=== PATIENT | male | born 1980 | race Hispanic/Latino ===

== ENCOUNTER 2018-03-22 17:42 | Emergency (ER) | payer BC, OTHER ==
[~2018-03-22] VITALS: Ht 180.3 cm; Wt 105.7 kg
[~2018-03-22 17:42] MED LIST: AUGMENTIN 500-1 EACH PO; CIPRO500 MG PO; CLINDAMYCIN HC300 MG PO; LEVAQUIN500 MG PO; NORCO 10MG-325MG1 EA PO; TYLENOL PO; TYLENOL WITH C1 EACH PO
[2018-03-22 18:09] LABS: BASOPHILS % 0.6 % (0.0-1.0); EOSINOPHILS # (AUTO) 0.3 (0.0-0.4); EOSINOPHILS % 3.7 % (0.0-6.0); HEMATOCRIT 43.5 % (38.2-49.6); HEMOGLOBIN 15.6 g/dL (14.0-18.0); LYMPHOCYTES # (AUTO) 1.6 (1.0-3.2); LYMPHOCYTES % 22.4 % (18.0-39.1); MEAN CORPUSCULAR HEMOGLOBIN 30.8 pg (28-32); MEAN CORPUSCULAR HGB CONC 35.9 g/dL (31-35); MEAN CORPUSCULAR VOLUME 85.8 fL (81-99); MONOCYTES # (AUTO) 0.5 (0.2-0.8); MONOCYTES % 6.5 % (4.4-11.3); NEUTROPHILS # (AUTO) 4.7 (2.1-6.9); NEUTROPHILS % 66.5 % (38.7-80.0); PLATELET COUNT 324 x10e3/uL (140-360); RED BLOOD COUNT 5.07 x10e6/uL (4.3-5.7); RED CELL DISTRIBUTION WIDTH 12.3 % (11.7-14.4)
[2018-03-22 18:32] LABS: ALANINE AMINOTRANSFERASE 31 IU/L (0-55); ALBUMIN/GLOBULIN RATIO 1.1 (0.8-2.0); ALKALINE PHOSPHATASE 82 IU/L (40-150); ANION GAP 14.9 mmol/L (8-16); BLOOD UREA NITROGEN 13 mg/dL (7-26); BUN/CREATININE RATIO 16 (6-25); CALCIUM 9.1 mg/dL (8.4-10.2); CARBON DIOXIDE 22 mmol/L (22-29); CHLORIDE 104 mmol/L (98-107); CREATININE, SERUM 0.83 mg/dL (0.72-1.25); EST GLOMERULAR FILTRATION RATE > 60 ML/MIN (60-); GLUCOSE 119 mg/dL (74-118); POTASSIUM 3.9 mmol/L (3.5-5.1); SODIUM 137 mmol/L (136-145)
[2018-03-22 19:08] LABS: BILIRUBIN,URINE NEGATIVE (NEGATIVE); CLARITY,URINE SL CLOUDY (CLEAR); COLOR,URINE YELLOW (YELLOW); KETONES,URINE NEGATIVE (NEGATIVE); LEUKOCYTE ESTERASE ,URINE 2+ (NEGATIVE); NITRITE,URINE NEGATIVE (NEGATIVE); PROTEIN,URINE DIPSTICK NEGATIVE (NEGATIVE); URINE UROBILINOGEN 0.2 mg/dL (0.2 - 1)
[2018-03-22 19:20] LABS: AMORPHOUS SEDIMENT,URINE MODERATE (FEW); BACTERIA,URINE MODERATE /HPF; EPITHELIAL CELLS,URINE FEW /LPF; RBC,URINE 0-5 /HPF (0-5)
[2018-03-22] MEDS ORDERED: AZITHROMYCIN 250 MG TAB PO ONE (19:45)
[2018-03-22] MEDS ORDERED: CEFTRIAXONE SOD 250 MG VIAL IM ONE (19:45)
[2018-03-22] MEDS ORDERED: IOPAMIDOL 370 MG/ML 200 ML INFUS..BTL INJ ONE (19:54)
[2018-03-22] MEDS ORDERED: SODIUM CHLORIDE 0.9% 50ML 50 ML ONE (19:54)
[2018-03-22] MEDS ORDERED: LIDOCAINE HCL 1% 2 ML AMP ONE (20:03)
--- NOTE | 2018-03-22 21:02 | Diagnostic Imaging Report ---
EXAM: CT Abdomen and Pelvis WITH contrast INDICATION: Pain, hematuria COMPARISON: None. TECHNIQUE: Abdomen and Pelvis was scanned utilizing a multidetector helical scanner after administration of IV contrast. Coronal and sagittal reformations were obtained. IV CONTRAST: 100 mL Isovue-370 COMPLICATIONS: None RADIATION DOSE: Total DLP:693 mGy*cm Estimated effective dose: (DLP x 0.015 x size factor) mSv CTDIvol has been reviewed. It is below the limits set by the Radiation Protocol Committee (RPC). Appropriate CT dose reduction techniques were utilized. FINDINGS: Abdomen: Lung Bases: No acute findings. Solid Organs: Gallbladder is contracted limiting evaluation. Liver, adrenals, kidneys, spleen, and pancreas are unremarkable. Upper GI Tract: No small bowel obstructive changes. Vascularity: No aortic aneurysm. Lymph Nodes: No suspicious adenopathy. Other: No free fluid or free air. Pelvis: Bladder: Unremarkable. Other: None. Colon: Appendix not inflamed. Minimal wall thickening and faint pericolonic stranding descending colon. Bones: No acute finding. IMPRESSION: 1. Mild wall thickening and faint pericolonic stranding descending/sigmoid colon suggest infectious or inflammatory colitis, with diverticulitis possible given a few scattered diverticula. Signed by: Dr. Roberto Almanzar MD on 03/22/2018 8:58 PM
[2018-03-22 21:40] VITALS: BP 118/72
== END 2018-03-22 21:40 | disposition home or self-care (01) ==
LOC: ER 17:42
DX: R10.30 Lower abdominal pain, unspecified (principal); N30.90 Cystitis, unspecified without hematuria; K57.32 Diverticulitis of large intestine without perforation or abscess without bleeding
CPT/HCPCS: 36415; 74177; 80053; 81001; 85025; 99284; J0696; J2001; Q9967

== ENCOUNTER 2018-05-27 10:41 | Emergency (ER) | payer OTHER ==
[~2018-05-27] VITALS: Ht 180.3 cm; Wt 105.7 kg
--- OUTSIDE RECORDS SUMMARY | 2018-05-27 10:46 | XMS REPORT ---
Author [facility] Address Unknown Phone Unavailable Care Team Providers Care Frame Stripper And Crusher Name Role Phone Blake SANDERS Unavailable Unavailable Problems This patient has no known problems. Allergies, Adverse Reactions, Alerts This patient has no known allergies or adverse reactions. Medications This patient has no known medications. Results Test Description Test Time Test Comments Text Results Atomic Results Result Comments CT ABDOMEN/PELVIS W 2018-03-22 20:54:00 [facility] [address] [place] [address] Patient Name: CASSY MCCORMICK MR #: [id number] : 1980 Age/Sex: 37/M Req #: [id number] Adm Physician: Ordered by: LUCY TAYLOR ACADEMIC DEAN Report #: [id number] Location: ER Room/Bed: Procedure: [id number] CT/CT ABDOMEN/PELVIS W Exam Date: 03/22/18 Exam Time: 2024 REPORT STATUS: Signed EXAM: CT Abdomen and Pelvis WITH contrast INDICA TION: Pain, hematuria COMPARISON: None. TECHNIQUE: Abdomen and Pelvis was scanned utilizing a multidetector helical scanner after administration of IV contrast. Coronal and sagittal reformations were obtained. IV CONTRAST: 100 mL Isovue-370 COMPLICATIONS: None RADIATION DOSE: Total DLP:693 mGy*cm Estimated effective dose: (DLP x 0.015 x size factor) mSv CTDIvol has been reviewed. It is below the limits set by the Radiation Protocol Committee (RPC). Appropriate CT dose reduction techniques were utilized. FINDINGS: Abdomen: Lung Bases: No acute findings. Solid Organs: Gallbladder is contracted limiting evaluation. Liver, adrenals, kidneys, spleen, and pancreas are unremarkable. Upper GI Tract: No small bowel obstructive changes. Vascularity: No aortic aneurysm. Lymph Nodes: No suspicious adenopathy. Other: No free fluid or free air. Pelvis: Bladder: Unremarkable. Other: None. Colon: Appendix not inflamed. Minimal wall thickening and faint pericolonic stranding descending colon. Bones: No acute finding. IMPRESSION: 1. Mild wall thickening and faint pericolonic stranding descending/sigmoid colon suggest infectious or inflammatory colitis, with diverticulitis possible given a few scattered diverticula. Signed by: Dr. Roberto Almanzar MD on 03/22/2018 8:58 PM Dictated By: ROBERTO ALMANZAR MD 57 Transcribed By: RONNY on 03/22/182057 COPY TO: LUCY TAYLOR NP
[2018-05-27] MEDS ORDERED: TYLENOL WITH C1 EACH PO (11:18)
== END 2018-05-27 11:36 | disposition home or self-care (01) ==
LOC: ER 10:41
DX: Z48.01 Encounter for change or removal of surgical wound dressing (principal)
CPT/HCPCS: 99282

== ENCOUNTER 2018-06-01 12:25 | Inpatient (IN) | payer OTHER ==
[2018-05-31 16:10] LABS: BASOPHILS % 0.3 % (0.0-1.0); EOSINOPHILS # (AUTO) 0.5 (0.0-0.4); EOSINOPHILS % 4.1 % (0.0-6.0); HEMATOCRIT 46.2 % (38.2-49.6); HEMOGLOBIN 15.2 g/dL (14.0-18.0); LYMPHOCYTES # (AUTO) 1.9 (1.0-3.2); LYMPHOCYTES % 14.8 % (18.0-39.1); MEAN CORPUSCULAR HEMOGLOBIN 29.8 pg (28-32); MEAN CORPUSCULAR HGB CONC 32.9 g/dL (31-35); MEAN CORPUSCULAR VOLUME 90.6 fL (81-99); MONOCYTES % 7.7 % (4.4-11.3); NEUTROPHILS # (AUTO) 9.1 (2.1-6.9); NEUTROPHILS % 72.6 % (38.7-80.0); PLATELET COUNT 400 x10e3/uL (140-360); RED CELL DISTRIBUTION WIDTH 12.2 % (11.7-14.4)
[2018-05-31 16:28] LABS: ALANINE AMINOTRANSFERASE 42 IU/L (0-55); ALBUMIN/GLOBULIN RATIO 0.8 (0.8-2.0); ALKALINE PHOSPHATASE 87 IU/L (40-150); ANION GAP 15.9 mmol/L (8-16); BLOOD UREA NITROGEN 11 mg/dL (7-26); BUN/CREATININE RATIO 14 (6-25); CALCIUM 10.2 mg/dL (8.4-10.2); CARBON DIOXIDE 29 mmol/L (22-29); CHLORIDE 100 mmol/L (98-107); CREATININE, SERUM 0.81 mg/dL (0.72-1.25); EST GLOMERULAR FILTRATION RATE > 60 ML/MIN (60-); GLUCOSE 107 mg/dL (74-118); POTASSIUM 3.9 mmol/L (3.5-5.1); SODIUM 141 mmol/L (136-145)
[2018-06-01] VITALS (12 sets, daily range): BP systolic 109–143; BP diastolic 56–84
[~2018-06-01] VITALS: Ht 180.3 cm; Wt 103.4 kg
[2018-06-01] MEDS ORDERED: LEVOFLOXACIN 500MG/D5W 100ML 100 ML IV ONE (13:04)
[2018-06-01] MEDS ORDERED: LEVOFLOXACIN 250MG/D5W 50ML 50 ML ONE (13:04)
[2018-06-01] MEDS ORDERED: CLINDAMYCIN PHOS 900MG/ 50ML 50 ML IV ONE (13:04)
[2018-06-01] MEDS ORDERED: LIDOCAINE HCL 2% LOCAL INJ 5 ML SDV VIAL INJ ONE (16:56)
[2018-06-01] MEDS ORDERED: DEXAMETHASONE SOD PHOS INJ 4 MG/ML VIAL ONE (16:56)
[2018-06-01] MEDS ORDERED: PROPOFOL IV EMULSION 10 MG/ML 20 ML VIAL ONE (16:56)
[2018-06-01] MEDS ORDERED: SEVOFLURANE INHAL SOLN 250 ML PEN BTL ONE (16:56)
[2018-06-01] MEDS ORDERED: ONDANSETRON HCL INJ 2MG/ML 2ML 2 MG/ML VIAL ONE (16:56)
[2018-06-01] MEDS ORDERED: BUPIVACAINE HCL 0.5% 10ML MPF VIAL INJ ONE (17:09)
[2018-06-01] MEDS ORDERED: BUPIVACAINE HCL 0.5% INJ 30 ML VIAL INJ ONE (17:09)
[2018-06-01] MEDS ORDERED: BACITRACIN ZINC 15 GM OINT ONE (17:51)
[2018-06-01] MEDS: D5.45%NS/KCL 20MEQ 1,000 ML IV SCH (18:07)
[2018-06-01] MEDS ORDERED: DIPHENHYDRAMINE HCL INJ 50 MG/ML VIAL IM PRN (18:15)
[2018-06-01] MEDS ORDERED: NALOXONE HCL INJ 0.4 MG/ML AMP IV PRN (18:15)
[2018-06-01] MEDS ORDERED: MORPHINE SULFATE 1 MG/ML 30ML PCA IV PRN (18:15)
[2018-06-01] MEDS ORDERED: DIPHENHYDRAMINE HCL 25 MG CAP PO PRN (18:15)
[2018-06-01] MEDS ORDERED: ONDANSETRON HCL INJ 2MG/ML 2ML 2 MG/ML VIAL IV PRN (18:15)
[2018-06-01] MEDS ORDERED: HYDROMORPHONE 2MG/ML 2 MG/ML ML ONE (18:39)
--- NOTE | 2018-06-01 19:45 | NUR ---
RECEIVED FROM PACU VIA STRETCHER. PATIENT IS DROWSY BUT AROUSABLE. ABLE TO FOLLOW COMMAND. WITH ON GOING STONE DRILLER HELPER OF MORPHINE AND OXYGEN AT 3L/MIN. NO DIFFICULTY OF BREATHING NOTED.
[2018-06-01] MEDS ORDERED: MIDAZOLAM HCL 2 MG/2 ML VIAL ONE (20:12)
[2018-06-01] MEDS ORDERED: MORPHINE SULFATE INJ 10 MG/ML ONE (20:12)
[2018-06-01] MEDS ORDERED: KETAMINE HCL INJ 50 MG/ML 10 ML VIAL ONE (20:12)
[2018-06-01] MEDS ORDERED: FENTANYL CITRATE/PF 100MCG/2 ML INJ ONE (20:12)
[2018-06-01] MEDS: CLINDAMYCIN 300MG 50 ML IV SCH (21:35)
[2018-06-01] MEDS: LEVOFLOXACIN 500MG/D5W 100ML 100 ML IV SCH (21:47)
[2018-06-02] VITALS (8 sets, daily range): BP systolic 108–144; BP diastolic 56–80
[2018-06-02] MEDS: D5.45%NS/KCL 20MEQ 1,000 ML IV SCH (02:07)
[2018-06-02] MEDS: CLINDAMYCIN 300MG 50 ML IV SCH ×3 (05:12→21:40)
[2018-06-02] MEDS: DOCUSATE SODIUM 100 MG CAP PO SCH ×2 (09:12→17:51)
[2018-06-02 09:17] LABS: BASOPHILS % 0.1 % (0.0-1.0); EOSINOPHILS % 0.2 % (0.0-6.0); HEMATOCRIT 42.1 % (38.2-49.6); HEMOGLOBIN 14.2 g/dL (14.0-18.0); LYMPHOCYTES # (AUTO) 1.5 (1.0-3.2); LYMPHOCYTES % 9.8 % (18.0-39.1); MEAN CORPUSCULAR HGB CONC 33.7 g/dL (31-35); MONOCYTES # (AUTO) 0.3 (0.2-0.8); MONOCYTES % 1.9 % (4.4-11.3); NEUTROPHILS # (AUTO) 13.5 (2.1-6.9); NEUTROPHILS % 87.5 % (38.7-80.0); PLATELET COUNT 362 x10e3/uL (140-360); RED BLOOD COUNT 4.73 x10e6/uL (4.3-5.7); RED CELL DISTRIBUTION WIDTH 11.9 % (11.7-14.4)
[2018-06-02 09:38] LABS: ANION GAP 13.1 mmol/L (8-16); BLOOD UREA NITROGEN 10 mg/dL (7-26); BUN/CREATININE RATIO 13 (6-25); CALCIUM 9.4 mg/dL (8.4-10.2); CARBON DIOXIDE 28 mmol/L (22-29); CHLORIDE 100 mmol/L (98-107); CREATININE, SERUM 0.75 mg/dL (0.72-1.25); EST GLOMERULAR FILTRATION RATE > 60 ML/MIN (60-); GLUCOSE 133 mg/dL (74-118); POTASSIUM 4.1 mmol/L (3.5-5.1); SODIUM 137 mmol/L (136-145)
[2018-06-02] MEDS ORDERED: MAGNESIUM HYDROXIDE 30 ML UDC PO PRN (10:00)
[2018-06-02] MEDS ORDERED: ALBUTEROL/IPRATROPIUM 3 ML NEB NEB PRN (10:00)
[2018-06-02] MEDS ORDERED: ACETAMINOPHEN 325 MG TAB PO PRN (10:00)
[2018-06-02] MEDS ORDERED: GUAIFENESIN/CODEINE 10 ML CUP PO PRN (10:00)
--- NOTE | 2018-06-02 10:01 | NUR ---
OIL TANK CAR CLEANER DC'd at this time, RR 18. Pt stated pain on 05/30 rating. Informed pt to call when in need of assistance. Healy patent, bag collection of clear yellow urine. SCD and KOURTNEY hose in place.
[2018-06-02] MEDS: MORPHINE SULFATE INJ 4 MG/ML INJ 1ML IV PRN ×3 (11:01→19:43)
[2018-06-02] MEDS: ONDANSETRON HCL INJ 2MG/ML 2ML 2 MG/ML VIAL IV PRN ×2 (11:01→14:36)
--- NOTE | 2018-06-02 14:51 | NUR ---
Nutrition Screen Note RD Recommendation for Physician: Continue diet as ordered Plan of Care: RD following, monitoring for adequacy and tolerance Nutrition reason for involvement: Nutrition Risk Trigger - MST Primary Diagnose(s):Penile cancer Ht:71 in Wt:227.56lbs BMI:31.7 kg/m2 IBW:172lbs RD Assessment:(06/08) Initial encounter with patient. Pt has no difficulty chewing or swallowing. No N, V, D. Pt denies any wt changes. Good Po intake. Current Diet: Regular diet Malnutrition Evaluation (06/02/2018) The patient does not meet criteria for a specified degree of malnutrition at this time. Will re-evaluate at follow-up as appropriate. Diet Adequacy: Meeting calorie needs, Meeting protein needs, Meeting fluid needs Tolerance: Tolerating PO Nutrition Care Level: steve Arredondo RD, LD, [facility]
--- NOTE | 2018-06-02 16:59 | History and Physical ---
PRIMARY CARE PHYSICIAN: Dr. Ronal Crespo. 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 HISTORY OF PRESENT ILLNESS: The patient is a 38 years old male, status post penile ectomy with distal shaft and glans removal. The patient has negative margins per pathology. The patient is otherwise stable postop care. He is in pain with pain control. The patient has multiple imaging tests done pending for results. 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 PAST SURGICAL HISTORY: abscess incision and drainage years ago. The patient is now status post partial penile shaft and glans resection secondary to squamous cell cancer. SOCIAL HISTORY: The patient is a smoker. Social drinker. No recreational drug use. ALLERGIES: TO CEFUROXIME. HOME MEDICATIONS: Tylenol No. 3 p.r.n. for pain. PHYSICAL EXAMINATION: VITAL SIGNS: Temperature is 96, blood pressure 108/60, pulse rate 60, respirations 20. GENERAL: The patient is in postoperative pain without any acute distress. HEENT: Normocephalic, atraumatic. Anicteric. NECK: Supple grossly. PULMONARY: Diminished breath sounds bilaterally. CARDIOVASCULAR: S1, S2. Regular rate and rhythm. ABDOMEN: Soft. Status post penile surgery. EXTREMITIES: No cyanosis or edema. NEUROLOGIC: No focal deficit. LABORATORY DATA: Sodium is 141, potassium 3.9, chloride 100, bicarb 29, BUN 11, creatinine 0.8, glucose is 107. WBC 12.5, hemoglobin 15.2, hematocrit 42.2, platelet is 400. AST 25, ALT is 42, alkaline phos 87, and total bilirubin 0.6. IMPRESSION: 1. Squamous cell penile cancer status post partial penile shaft and glans resection secondary to cancer, clear margin. 2. Bilateral inguinal lymph node enlargement. 3. Small lung nodules found on imaging. PLAN: Continue with postop care. Pain control. Incentive spirometry. SCD. Increase activity as tolerated. Adjust medication. MD SHANA Gandara/MODL /[id number]
[2018-06-02] MEDS: LEVOFLOXACIN 500MG/D5W 100ML 100 ML IV SCH (17:51)
[2018-06-02] MEDS ORDERED: SODIUM CHLORIDE 0.9% 250ML 250 ML ONE (20:36)
[2018-06-02] MEDS: HYDROCODONE/APAP 10MG-325MG TAB PO PRN (22:30)
[2018-06-03] VITALS (7 sets, daily range): BP systolic 107–134; BP diastolic 56–69
[2018-06-03] MEDS: MORPHINE SULFATE INJ 4 MG/ML INJ 1ML IV PRN ×3 (02:01→20:31)
[2018-06-03] MEDS: CLINDAMYCIN 300MG 50 ML IV SCH ×3 (06:03→21:45)
[2018-06-03 08:13] LABS: BASOPHILS # (AUTO) 0.1 (0.0-0.1); BASOPHILS % 0.5 % (0.0-1.0); EOSINOPHILS # (AUTO) 0.7 (0.0-0.4); EOSINOPHILS % 7.1 % (0.0-6.0); HEMATOCRIT 41.9 % (38.2-49.6); HEMOGLOBIN 13.9 g/dL (14.0-18.0); LYMPHOCYTES # (AUTO) 2.1 (1.0-3.2); LYMPHOCYTES % 23.1 % (18.0-39.1); MEAN CORPUSCULAR HEMOGLOBIN 30.2 pg (28-32); MEAN CORPUSCULAR HGB CONC 33.2 g/dL (31-35); MEAN CORPUSCULAR VOLUME 90.9 fL (81-99); MONOCYTES # (AUTO) 0.8 (0.2-0.8); MONOCYTES % 8.7 % (4.4-11.3); NEUTROPHILS # (AUTO) 5.5 (2.1-6.9); NEUTROPHILS % 60.1 % (38.7-80.0); PLATELET COUNT 347 x10e3/uL (140-360); RED BLOOD COUNT 4.61 x10e6/uL (4.3-5.7); RED CELL DISTRIBUTION WIDTH 12.1 % (11.7-14.4)
[2018-06-03 08:26] LABS: ANION GAP 11.5 mmol/L (8-16); BLOOD UREA NITROGEN 11 mg/dL (7-26); BUN/CREATININE RATIO 14 (6-25); CALCIUM 9.1 mg/dL (8.4-10.2); CARBON DIOXIDE 28 mmol/L (22-29); CHLORIDE 102 mmol/L (98-107); CREATININE, SERUM 0.81 mg/dL (0.72-1.25); EST GLOMERULAR FILTRATION RATE > 60 ML/MIN (60-); GLUCOSE 95 mg/dL (74-118); POTASSIUM 4.5 mmol/L (3.5-5.1); SODIUM 137 mmol/L (136-145)
[2018-06-03] MEDS: DOCUSATE SODIUM 100 MG CAP PO SCH ×2 (08:47→18:21)
[2018-06-03] MEDS: HYDROCODONE/APAP 10MG-325MG TAB PO PRN (09:55)
--- NOTE | 2018-06-03 13:16 | Diagnostic Imaging Report ---
EXAMINATION: CT scan of the chest with contrast. TECHNIQUE: Helical CT images of the chest were performed from the lung apices to the level of the adrenal glands after the intravenous administration of 100 cc of Isovue 300. Coronal and sagittal reformatted images were obtained.Dose modulation, iterative reconstruction, and/or weight based adjustment of the mA/kV was utilized to reduce the radiation dose to as low as reasonably achievable. COMPARISON: None. CLINICAL HISTORY:Cancer, evaluate for malignancy. DISCUSSION: LINES/TUBES: None. LUNGS AND AIRWAYS: Multiple small subsolid nodules scattered throughout the lungs. The largest is in the right middle lobe measuring 0.6 cm on image 39. Linear areas of atelectasis posteriorly. PLEURA: No pneumothorax or pleural effusions. HEART AND MEDIASTINUM: The thyroid gland is normal. The heart and pericardium are within normal limits. LYMPH NODES: Lymphadenopathy throughout the mediastinum with selected lymph nodes in short axis including: Right upper paratracheal 1.7 cm, right lower paratracheal 1.8 cm, subcarinal 2.5 cm, right hilar 1.9 cm, and left hilar 1.7 cm. ABDOMEN: Limited contrast-enhanced views of the upper abdomen show no abnormality within the visualized liver, spleen, pancreas, or kidneys. The adrenal glands are normal. BONES AND SOFT TISSUES: No acute bony abnormalities. IMPRESSION: Mediastinal and hilar lymphadenopathy. Multiple subcentimeter pulmonary nodules Signed by: Dr. Jacinto Collado M.D. on 06/03/2018 1:12 PM
[2018-06-03] MEDS: ONDANSETRON HCL INJ 2MG/ML 2ML 2 MG/ML VIAL IV PRN ×2 (14:50→20:31)
[2018-06-03] MEDS ORDERED: SODIUM CHLORIDE 0.9% 50ML 50 ML ONE (18:01)
[2018-06-03] MEDS ORDERED: IOPAMIDOL 370 MG/ML 200 ML INFUS..BTL INJ ONE (18:01)
[2018-06-03] MEDS: LEVOFLOXACIN 500MG/D5W 100ML 100 ML IV SCH (18:21)
--- NOTE | 2018-06-03 21:40 | NUR ---
SPOKE WITH DR. KELLER FOR LAB AND NPO ORDERS BEFORE PROCEDURES TOMORROW.
[2018-06-04] VITALS (9 sets, daily range): BP systolic 113–133; BP diastolic 56–78
--- NOTE | 2018-06-04 05:45 | NUR ---
Hibiclens wipes done.
[2018-06-04 05:57] LABS: BASOPHILS # (AUTO) 0.1 (0.0-0.1); BASOPHILS % 0.7 % (0.0-1.0); EOSINOPHILS # (AUTO) 0.7 (0.0-0.4); EOSINOPHILS % 8.4 % (0.0-6.0); HEMATOCRIT 44.3 % (38.2-49.6); HEMOGLOBIN 15.1 g/dL (14.0-18.0); LYMPHOCYTES # (AUTO) 1.5 (1.0-3.2); LYMPHOCYTES % 17.2 % (18.0-39.1); MEAN CORPUSCULAR HEMOGLOBIN 30.3 pg (28-32); MEAN CORPUSCULAR HGB CONC 34.1 g/dL (31-35); MEAN CORPUSCULAR VOLUME 88.8 fL (81-99); MONOCYTES # (AUTO) 0.7 (0.2-0.8); MONOCYTES % 7.9 % (4.4-11.3); NEUTROPHILS # (AUTO) 5.7 (2.1-6.9); NEUTROPHILS % 64.8 % (38.7-80.0); PLATELET COUNT 351 x10e3/uL (140-360); RED BLOOD COUNT 4.99 x10e6/uL (4.3-5.7); RED CELL DISTRIBUTION WIDTH 11.8 % (11.7-14.4)
[2018-06-04] MEDS: CLINDAMYCIN 300MG 50 ML IV SCH ×3 (06:00→21:18)
[2018-06-04 06:08] LABS: INR 0.95; PROTHROMBIN TIME 13.2 seconds (11.9-14.5)
[2018-06-04 06:09] LABS: PARTIAL THROMBOPLASTIN TIME 34.1 seconds (23.8-35.5)
[2018-06-04 06:15] LABS: ANION GAP 13.3 mmol/L (8-16); BLOOD UREA NITROGEN 11 mg/dL (7-26); BUN/CREATININE RATIO 12 (6-25); CALCIUM 9.5 mg/dL (8.4-10.2); CARBON DIOXIDE 27 mmol/L (22-29); CHLORIDE 98 mmol/L (98-107); CREATININE, SERUM 0.95 mg/dL (0.72-1.25); EST GLOMERULAR FILTRATION RATE > 60 ML/MIN (60-); GLUCOSE 97 mg/dL (74-118); POTASSIUM 4.3 mmol/L (3.5-5.1); SODIUM 134 mmol/L (136-145)
--- NOTE | 2018-06-04 07:19 | NUR ---
RECEIVED PATIENT AND WALKING ROUNDS COMPLETE. PATIENT AWAKE RESTING AT THIS TIME. NO SIGNS OF DISTRESS. CALL LIGHT IN REACH, WILL CONTINUE TO MONITOR.
[2018-06-04] MEDS: DOCUSATE SODIUM 100 MG CAP PO SCH ×2 (08:28→17:12)
--- NOTE | 2018-06-04 10:20 | NUR ---
PATIENT LEFT TO RADIOLOGY AT THIS TIME.
[2018-06-04] MEDS ORDERED: FENTANYL CITRATE/PF 100MCG/2 ML INJ ONE (11:32)
--- NOTE | 2018-06-04 11:40 | NUR ---
PATIENT BACK FROM BIOPSY AT THIS TIME.
[2018-06-04] MEDS: HYDROCODONE/APAP 10MG-325MG TAB PO PRN (11:52)
--- NOTE | 2018-06-04 12:11 | NUR ---
RADIOLOGY ORDERED FENTANYL. PATIENT REFUSED FENTANYL, WANTED NORCO INSTEAD. NORCO GIVEN FOR PAIN.
[2018-06-04] MEDS ORDERED: ONDANSETRON HCL 4 MG ORAL DISINTEGRATING TAB PO PRN (14:45)
[2018-06-04] MEDS: LEVOFLOXACIN 500MG/D5W 100ML 100 ML IV SCH (17:12)
[2018-06-04] MEDS: MORPHINE SULFATE INJ 4 MG/ML INJ 1ML IV PRN (21:18)
[2018-06-05] VITALS: BP 125/58
[2018-06-05 04:00] VITALS: BP 135/68
[2018-06-05] MEDS: CLINDAMYCIN 300MG 50 ML IV SCH (05:37)
[2018-06-05] MEDS: MORPHINE SULFATE INJ 4 MG/ML INJ 1ML IV PRN (05:37)
[2018-06-05 05:43] LABS: BASOPHILS # (AUTO) 0.1 (0.0-0.1); BASOPHILS % 0.8 % (0.0-1.0); EOSINOPHILS # (AUTO) 0.7 (0.0-0.4); EOSINOPHILS % 7.4 % (0.0-6.0); HEMATOCRIT 43.4 % (38.2-49.6); HEMOGLOBIN 15.1 g/dL (14.0-18.0); LYMPHOCYTES # (AUTO) 1.6 (1.0-3.2); LYMPHOCYTES % 16.1 % (18.0-39.1); MEAN CORPUSCULAR HEMOGLOBIN 30.2 pg (28-32); MEAN CORPUSCULAR HGB CONC 34.8 g/dL (31-35); MEAN CORPUSCULAR VOLUME 86.8 fL (81-99); MONOCYTES # (AUTO) 0.9 (0.2-0.8); MONOCYTES % 8.8 % (4.4-11.3); NEUTROPHILS # (AUTO) 6.5 (2.1-6.9); NEUTROPHILS % 65.9 % (38.7-80.0); PLATELET COUNT 358 x10e3/uL (140-360); RED CELL DISTRIBUTION WIDTH 11.9 % (11.7-14.4)
[2018-06-05 06:00] LABS: ANION GAP 13.5 mmol/L (8-16); BLOOD UREA NITROGEN 13 mg/dL (7-26); BUN/CREATININE RATIO 13 (6-25); CALCIUM 9.8 mg/dL (8.4-10.2); CARBON DIOXIDE 26 mmol/L (22-29); CHLORIDE 100 mmol/L (98-107); EST GLOMERULAR FILTRATION RATE > 60 ML/MIN (60-); GLUCOSE 109 mg/dL (74-118); POTASSIUM 4.5 mmol/L (3.5-5.1); SODIUM 135 mmol/L (136-145)
--- NOTE | 2018-06-05 07:07 | NUR ---
RECEIVED PATIENT AND WALKING ROUNDS COMPLETE. PATIENT AWAKE RESTING IN BED, NO SIGNS OF DISTRESS. CALL LIGHT IN REACH WILL CONTINUE TO MONITOR.
[2018-06-05 07:49] VITALS: BP 119/56
[2018-06-05] MEDS: DOCUSATE SODIUM 100 MG CAP PO SCH (08:19)
[2018-06-05 08:27] VITALS: BP 119/56
[2018-06-05] MEDS ORDERED: TYLENOL WITH C1 EACH PO (10:02)
[2018-06-05] MEDS ORDERED: BACTRIM DS TAB1 EACH PO (10:02)
--- NOTE | 2018-06-05 10:40 | NUR ---
REMOVED PATIENTS IV'S. CATHETER TIPS INTACT AND PRESSURE DRESSING APPLIED. GREENWOOD BAG SWITCHED TO LEG BAG.
--- NOTE | 2018-06-05 10:53 | NUR ---
PATIENT DISCHARGED FROM FACILITY. PATIENT GATHERED ALL PERSONAL BELONGINGS INCLUDING DISCHARGE INSTRUCTIONS AND FOLLOW UP INFORMATION. LEFT UNIT IN WHEELCHAIR AND WENT HOME VIA PRIVATE AUTO.
--- NOTE | 2018-06-05 13:43 | Discharge Summary ---
RECORD CHANGER ASSEMBLER: Dr. Jeff Hutton. PRIMARY CARE PHYSICIAN: Dr. Ronal Crespo. CHIEF COMPLAINT: 1. Status post partial penile resection secondary to squamous cell cancer. 2. Bilateral enlarged inguinal lymph node. 3. Multiple small lesions in the lung with possible metastasis. SUMMARY: The patient is a 38-year-old male with squamous cell penile carcinoma. The patient is status post partial penile resection procedure done by Dr. Jeff Hutton and admitted for postoperative care. Procedure was done on June 01, 2018. The patient is admitted for postoperative care. CT chest showed multiple subcentimeter pulmonary nodules. Bilateral inguinal lymph node status post interventional radiology biopsy. The patient is postoperative day #4. He is well with Healy catheter. Discussed with the patient and spouse at length on followup visit. Discussed with Dr. Jeff Huttno as well. Please review his note. Awaiting for pathology of the inguinal lymph node biopsy. The patient is stable, discharged home today with Bactrim and pain medication. He is to follow up with me next week and Dr. Hutton on a closely basis. MD SHANA Gandara/YANA /[id number]
--- NOTE | 2018-06-07 07:55 | Diagnostic Imaging Report ---
Ultrasound-guided right inguinal lymph node fine-needle aspiration and core biopsy Pre-Procedure Diagnosis: Right inguinal lymphadenopathy, history of testicular malignancy Post-procedure Diagnosis: Right inguinal lymphadenopathy status post biopsy Advertising Project Manager: Brian Killian MD Sedation: 1% lidocaine local anesthesia, IV fentanyl per nursing administration records. Continuous hemodynamic monitoring was performed. Estimate blood loss: None. Complications: None Implants/Grafts: None Specimen: 22-gauge fine needle aspiration x 3, 18-gauge core biopsies x 6 Procedure/Findings: Informed consent was obtained and the patient positioned supine in the ultrasound suite. A timeout was performed, followed by preliminary ultrasound of the right inguinal region, which demonstrated bulky heterogeneous lymphadenopathy. The largest right inguinal lymph node was targeted for biopsy. The right groin was prepped and draped in standard sterile fashion. Local anesthesia with 1% subcutaneous lidocaine was administered. Using real-time ultrasound guidance, a 16-gauge introducer needle was advanced into the right inguinal lymph node. Subsequently, 22-gauge fine-needle aspirates were obtained. The sample was provided to pathology, however no cellularity was present, possibly secondary to necrosis. Next, with ultrasound guidance, a total of six 18-gauge core biopsies were obtained with coaxial technique and provided to pathology. The introducer needle was removed. Sterile bandage was placed. Post procedural ultrasound demonstrated no immediate complication. A sterile dressing was applied. Impression: Ultrasound guided fine needle aspiration and core biopsy of right inguinal inguinal lymph node as above. Signed by: Dr. Brian Killian MD on 06/07/2018 7:51 AM
== END 2018-06-05 10:48 | disposition home or self-care (01) | DRG 709 ==
LOC: OR 12:25 → MED/SURG 18:09
PROVIDERS: ADMIT Internal Medicine; ATTEND Internal Medicine
PROC: 0VBS0ZZ Excision of Penis, Open Approach (ICD-10-PCS; principal; 2018-06-01 16:41)
DX: D07.4 Carcinoma in situ of penis (principal); N39.0 Urinary tract infection, site not specified; C77.4 Secondary and unspecified malignant neoplasm of inguinal and lower limb lymph nodes; E87.1 Hypo-osmolality and hyponatremia; R91.8 Other nonspecific abnormal finding of lung field; E66.9 Obesity, unspecified; Z68.31 Body mass index [BMI] 31.0-31.9, adult
CPT/HCPCS: 10005; 36415; 38505; 71260; 74470; 80048; 80053; 85025; 85610; 85730; 88172; 88173; 88304; 88305; 88307; 88309; 88331; 88342; J1100; J1956; J2001; J2250; J2270; J2405; J7050; Q9967

== ENCOUNTER 2018-07-02 12:58 | Inpatient (IN) | payer OTHER ==
[2018-06-29 12:42] LABS: BASOPHILS # (AUTO) 0.1 (0.0-0.1); BASOPHILS % 0.6 % (0.0-1.0); EOSINOPHILS # (AUTO) 0.6 (0.0-0.4); EOSINOPHILS % 6.6 % (0.0-6.0); HEMATOCRIT 43.6 % (38.2-49.6); HEMOGLOBIN 15.4 g/dL (14.0-18.0); LYMPHOCYTES # (AUTO) 1.9 (1.0-3.2); LYMPHOCYTES % 22.6 % (18.0-39.1); MEAN CORPUSCULAR HEMOGLOBIN 30.1 pg (28-32); MEAN CORPUSCULAR HGB CONC 35.3 g/dL (31-35); MEAN CORPUSCULAR VOLUME 85.3 fL (81-99); MONOCYTES # (AUTO) 0.6 (0.2-0.8); MONOCYTES % 7.1 % (4.4-11.3); NEUTROPHILS # (AUTO) 5.2 (2.1-6.9); NEUTROPHILS % 62.5 % (38.7-80.0); PLATELET COUNT 330 x10e3/uL (140-360); RED BLOOD COUNT 5.11 x10e6/uL (4.3-5.7); RED CELL DISTRIBUTION WIDTH 12.1 % (11.7-14.4)
--- NOTE | 2018-06-29 13:02 | Diagnostic Imaging Report ---
EXAMINATION: PA and lateral views of the chest. COMPARISON: CT chest 06/03/2018 CLINICAL HISTORY: Preoperative study for urological procedure DISCUSSION: The lungs are well-inflated and without focal airspace consolidation, pleural effusion, or pneumothorax. Bilateral hilar fullness and enlargement of the upper mediastinum shown to represent lymphadenopathy on comparison CT chest is again noted. Normal heart size. No overt pulmonary edema. No acute osseous abnormality. IMPRESSION: No acute cardiopulmonary abnormality. Bulky hilar and mediastinal lymphadenopathy. Refer to the report for CT scan of the chest 06/03/2018 for further description. Signed by: Dr. Chivo Cortés M.D. on 06/29/2018 12:59 PM
[2018-06-29 13:04] LABS: ALANINE AMINOTRANSFERASE 41 IU/L (0-55); ALBUMIN/GLOBULIN RATIO 0.9 (0.8-2.0); ALKALINE PHOSPHATASE 85 IU/L (40-150); ANION GAP 14.1 mmol/L (8-16); BLOOD UREA NITROGEN 6 mg/dL (7-26); BUN/CREATININE RATIO 8 (6-25); CALCIUM 10.1 mg/dL (8.4-10.2); CARBON DIOXIDE 23 mmol/L (22-29); CHLORIDE 106 mmol/L (98-107); CREATININE, SERUM 0.79 mg/dL (0.72-1.25); EST GLOMERULAR FILTRATION RATE > 60 ML/MIN (60-); GLUCOSE 102 mg/dL (74-118); POTASSIUM 4.1 mmol/L (3.5-5.1); SODIUM 139 mmol/L (136-145)
[~2018-07-02] VITALS: Ht 175.3 cm; Wt 118.4 kg
[~2018-07-02 12:58] MED LIST changes: +BACTRIM DS TAB1 EACH PO
[2018-07-02] MEDS ORDERED: CLINDAMYCIN 600MG / 50ML 50 ML IV ONE (13:27)
[2018-07-02] MEDS ORDERED: LEVOFLOXACIN 500MG/D5W 100ML 100 ML IV ONE (13:27)
[2018-07-02] MEDS ORDERED: FENTANYL CITRATE/PF 100MCG/2 ML INJ ONE ×2 (14:18→18:08)
[2018-07-02] MEDS ORDERED: MIDAZOLAM HCL 2 MG/2 ML VIAL ONE ×2 (14:18→18:08)
[2018-07-02] MEDS ORDERED: BACITRACIN 50,000 UNIT VIAL ONE (17:09)
[2018-07-02] MEDS: D5.45%NS/KCL 20MEQ 1,000 ML IV SCH (17:32)
[2018-07-02] MEDS ORDERED: LEVOFLOXACIN 500MG/D5W 100ML 100 ML IV SCH (17:45)
[2018-07-02] MEDS ORDERED: DIPHENHYDRAMINE HCL INJ 50 MG/ML VIAL IM PRN (17:45)
[2018-07-02] MEDS ORDERED: NALOXONE HCL INJ 0.4 MG/ML AMP IV PRN (17:45)
[2018-07-02] MEDS ORDERED: MORPHINE SULFATE 1 MG/ML 30ML PCA IV PRN (17:45)
[2018-07-02] MEDS ORDERED: HYDROMORPHONE 2MG/ML 2 MG/ML ML ONE (17:48)
[2018-07-02] MEDS ORDERED: SEVOFLURANE INHAL SOLN 250 ML PEN BTL ONE (18:14)
[2018-07-02] MEDS ORDERED: PROPOFOL IV EMULSION 10 MG/ML 20 ML VIAL ONE (18:14)
[2018-07-02] MEDS ORDERED: ONDANSETRON HCL INJ 2MG/ML 2ML 2 MG/ML VIAL ONE (18:14)
[2018-07-02] MEDS ORDERED: ROCURONIUM BROMIDE 10 MG/ML 5ML VIAL ONE (18:14)
[2018-07-02] MEDS ORDERED: LIDOCAINE HCL 2% LOCAL INJ 5 ML SDV VIAL INJ ONE (18:14)
[2018-07-02] MEDS ORDERED: DEXAMETHASONE SOD PHOS INJ 4 MG/ML VIAL ONE (18:14)
[2018-07-02] MEDS ORDERED: ACETAMINOPHEN 1000 MG/100 ML IV ONE (18:14)
[2018-07-02 19:09] VITALS: BP 128/78
--- NOTE | 2018-07-02 19:12 | NUR ---
Received from PACU. Patient is alert and verbal. Healy Catheter in placed. Dressing intact with TOM drain. On INJECTION SPECIALIST pump. O2 at 2l/min via nasal cannula. Oriented to room. Call light within reached.
[2018-07-02 20:19] VITALS: BP 128/78
[2018-07-02] MEDS: LEVOFLOXACIN 500MG/D5W 100ML 100 ML IV SCH (20:23)
[2018-07-02] MEDS: ONDANSETRON HCL INJ 2MG/ML 2ML 2 MG/ML VIAL IV PRN (20:30)
[2018-07-02] MEDS: CLINDAMYCIN 300MG 50 ML IV SCH (22:00)
--- NOTE | 2018-07-02 22:00 | NUR ---
Dr. Crespo notified of this admission.
[2018-07-02 23:41] VITALS: BP 128/78
[2018-07-03] VITALS (8 sets, daily range): BP systolic 109–133; BP diastolic 58–80
[2018-07-03] MEDS: D5.45%NS/KCL 20MEQ 1,000 ML IV SCH (01:32)
[2018-07-03] MEDS: CLINDAMYCIN 300MG 50 ML IV SCH ×3 (05:16→22:06)
[2018-07-03 06:00] LABS: BASOPHILS % 0.2 % (0.0-1.0); EOSINOPHILS % 0.1 % (0.0-6.0); HEMATOCRIT 41.1 % (38.2-49.6); HEMOGLOBIN 14.3 g/dL (14.0-18.0); LYMPHOCYTES # (AUTO) 1.3 (1.0-3.2); LYMPHOCYTES % 13.5 % (18.0-39.1); MEAN CORPUSCULAR HGB CONC 34.8 g/dL (31-35); MEAN CORPUSCULAR VOLUME 86.2 fL (81-99); MONOCYTES # (AUTO) 0.5 (0.2-0.8); MONOCYTES % 5.5 % (4.4-11.3); NEUTROPHILS # (AUTO) 7.9 (2.1-6.9); NEUTROPHILS % 80.1 % (38.7-80.0); PLATELET COUNT 329 x10e3/uL (140-360); RED BLOOD COUNT 4.77 x10e6/uL (4.3-5.7); RED CELL DISTRIBUTION WIDTH 11.9 % (11.7-14.4)
[2018-07-03 06:18] LABS: ANION GAP 14.1 mmol/L (8-16); BLOOD UREA NITROGEN 11 mg/dL (7-26); BUN/CREATININE RATIO 12 (6-25); CALCIUM 9.9 mg/dL (8.4-10.2); CARBON DIOXIDE 24 mmol/L (22-29); CHLORIDE 102 mmol/L (98-107); CREATININE, SERUM 0.89 mg/dL (0.72-1.25); EST GLOMERULAR FILTRATION RATE > 60 ML/MIN (60-); GLUCOSE 142 mg/dL (74-118); POTASSIUM 4.1 mmol/L (3.5-5.1); SODIUM 136 mmol/L (136-145)
--- NOTE | 2018-07-03 07:20 | NUR ---
PT RESTING IN BED COMFORTABLY [id number]. FAMILY IS AT BEDSIDE PT STATS PAIN AT THIS TIME IS COMFORTABLE 3/10 TO SURGICAL SITE RLQ , DRESSING IS DRY AND INTACT, WITH TOM DRAIN SUCTIONED AND SECURED TO GOWN PV TO THE LEFT HAND IS PATENT AND DRY. SED PRESENT FOR DVT PROPHYLAXIS WILL CONTINUE TO MONITOR PT CLOSELY, SIDE RAILX2, BED WHEELS LOCKED,CALL LIGHT IS WITHIN EASY REACH, INSTRUCTED TO CALL FOR ASSISTANCE IF NEEDED
[2018-07-03] MEDS: DOCUSATE SODIUM 100 MG CAP PO SCH ×2 (08:00→18:22)
--- NOTE | 2018-07-03 12:15 | NUR ---
DRESSING TO THE RLQ CHANGED. PT TOLERATED WELL
[2018-07-03] MEDS: LEVOFLOXACIN 500MG/D5W 100ML 100 ML IV SCH (21:06)
[2018-07-04] VITALS: BP 123/58
[2018-07-04 04:00] VITALS: BP 123/58
--- NOTE | 2018-07-04 05:17 | NUR ---
CHANGED DRESSING TO RIGHT GROIN/INGUINAL AREA. NO ACTIVE BLEEDING NOTED. PT TOLERATED WELL
[2018-07-04] MEDS: CLINDAMYCIN 300MG 50 ML IV SCH (05:26)
[2018-07-04 06:09] LABS: BASOPHILS % 0.6 % (0.0-1.0); EOSINOPHILS # (AUTO) 0.3 (0.0-0.4); EOSINOPHILS % 3.8 % (0.0-6.0); LYMPHOCYTES # (AUTO) 1.8 (1.0-3.2); MEAN CORPUSCULAR HEMOGLOBIN 30.6 pg (28-32); MEAN CORPUSCULAR VOLUME 87.3 fL (81-99); MONOCYTES # (AUTO) 0.8 (0.2-0.8); MONOCYTES % 10.7 % (4.4-11.3); NEUTROPHILS # (AUTO) 4.1 (2.1-6.9); NEUTROPHILS % 58.2 % (38.7-80.0); PLATELET COUNT 267 x10e3/uL (140-360); RED BLOOD COUNT 4.58 x10e6/uL (4.3-5.7); RED CELL DISTRIBUTION WIDTH 12.4 % (11.7-14.4)
[2018-07-04 06:32] LABS: ANION GAP 9.2 mmol/L (8-16); BLOOD UREA NITROGEN 9 mg/dL (7-26); BUN/CREATININE RATIO 9 (6-25); CALCIUM 9.4 mg/dL (8.4-10.2); CARBON DIOXIDE 29 mmol/L (22-29); CHLORIDE 102 mmol/L (98-107); CREATININE, SERUM 0.98 mg/dL (0.72-1.25); EST GLOMERULAR FILTRATION RATE > 60 ML/MIN (60-); GLUCOSE 106 mg/dL (74-118); POTASSIUM 4.2 mmol/L (3.5-5.1); SODIUM 136 mmol/L (136-145)
[2018-07-04 08:33] VITALS: BP 123/64
[2018-07-04] MEDS ORDERED: HYDROCODONE/APAP 10MG-325MG TAB PO PRN (09:15)
[2018-07-04] MEDS ORDERED: MORPHINE SULFATE INJ 4 MG/ML INJ 1ML IV PRN (09:15)
[2018-07-04] MEDS ORDERED: ONDANSETRON HCL 4 MG ORAL DISINTEGRATING TAB PO PRN (09:15)
[2018-07-04] MEDS: DOCUSATE SODIUM 100 MG CAP PO SCH (09:18)
--- NOTE | 2018-07-04 10:46 | NUR ---
Healy catheter 16Fr. removed at this time. 10cc of fluid removed from balloon. Pt tolerated well. Yellow urine noted in catheter collection bag, no blood clots or hematuria observed in bag.
--- NOTE | 2018-07-04 11:06 | NUR ---
Patient teaching provided regarding management of TOM drain. Per order pt is to measure and record drainage collection and provide history or measurements per MD order. Teach back initiated, pt able to demonstrate proper emptying, readings on recording of fluid drainage, and squeezing of bulb when finished for drainage to flow.
[2018-07-04] MEDS ORDERED: ULTRAM 50MG50 MG PO (11:09)
[2018-07-04] MEDS ORDERED: DOXYCYCLINE HY100 MG PO (11:09)
--- NOTE | 2018-07-04 11:25 | NUR ---
Collection cup provided to patient and family member, .
--- NOTE | 2018-07-04 12:06 | NUR ---
CM SPOKE TO PATIENT AT BEDSIDE REGARDING DISCHARGE PLAN. PATIENT INFORMED THAT HOME HEALTH HAS BEEN ORDERED. PATIENT VERBALLY AGREED TO HOME HEALTH SERVICES FOR IRRIGATION, EDUCATION AND [facility] CARE. PATIENT GIVEN CHOICES FOR HOME HEALTH PROVIDERS. PATIENT CHOSE [facility]. CHOICE LETTER SIGNED AND PLACED IN CHART. CLINICAL AND ORDER FAXED. PENDING ACCEPTANCE. [facility] (P) [phone] (F) [phone]
== END 2018-07-04 11:50 | disposition home or self-care (01) | DRG 715 ==
LOC: OR 12:58 → MED/SURG 18:37
PROVIDERS: ADMIT Internal Medicine; ATTEND Internal Medicine
PROC: 07BH0ZX Excision of Right Inguinal Lymphatic, Open Approach, Diagnostic (ICD-10-PCS; principal; 2018-07-02 15:00)
DX: C60.9 Malignant neoplasm of penis, unspecified (principal); N39.0 Urinary tract infection, site not specified; N35.919 Unspecified urethral stricture, male, unspecified site; R31.0 Gross hematuria; R33.9 Retention of urine, unspecified; E66.9 Obesity, unspecified; Z68.38 Body mass index [BMI] 38.0-38.9, adult
CPT/HCPCS: 36415; 71046; 80048; 80053; 85025; 87071; 87075; 87205; 88304; 88307; 88312; 96365; J1100; J1956; J2001; J2250; J2270; J2405

== ENCOUNTER 2018-07-18 08:19 | Inpatient (IN) | payer OTHER ==
[~2018-07-18] VITALS: Ht 175.3 cm; Wt 118.4 kg
[~2018-07-18 08:19] MED LIST changes: +DOXYCYCLINE HY100 MG PO; +ULTRAM 50MG50 MG PO
[2018-07-18] MEDS ORDERED: CLINDAMYCIN PHOS 900MG/ 50ML 50 ML IV ONE (08:33)
[2018-07-18] MEDS ORDERED: CEFAZOLIN SOD 2 GM/D5W 50ML 50 ML IV ONE (08:33)
[2018-07-18] MEDS ORDERED: ACETAMINOPHEN 1000 MG/100 ML 100 ML IV ONE (10:54)
[2018-07-18] MEDS ORDERED: DIPHENHYDRAMINE HCL INJ 50 MG/ML VIAL IM PRN (12:30)
[2018-07-18] MEDS ORDERED: ONDANSETRON HCL INJ 2MG/ML 2ML 2 MG/ML VIAL IV PRN (12:30)
[2018-07-18] MEDS ORDERED: DIPHENHYDRAMINE HCL 25 MG CAP PO PRN (12:30)
[2018-07-18] MEDS ORDERED: NALOXONE HCL INJ 0.4 MG/ML AMP IV PRN (12:30)
[2018-07-18] MEDS ORDERED: MORPHINE SULFATE 1 MG/ML 30ML PCA IV PRN (12:30)
[2018-07-18] MEDS ORDERED: HYDROMORPHONE 2MG/ML 2 MG/ML ML ONE (13:15)
[2018-07-18] MEDS ORDERED: MIDAZOLAM HCL 2 MG/2 ML VIAL ONE (13:34)
[2018-07-18] MEDS ORDERED: MORPHINE SULFATE INJ 10 MG/ML ONE (13:34)
[2018-07-18] MEDS ORDERED: FENTANYL CITRATE/PF 100MCG/2 ML INJ ONE (13:34)
--- NOTE | 2018-07-18 14:25 | NUR ---
RECEIVED PT FROM RECOVERY DROWSY AND DIAPHORETIC BUT ABLE TO ANSWER QUESTIONS APPROPRIATELY. DRESSING TO LEFT GROIN C/D/I TOM DRAIN X1. RIGHT GROIN INCISION NOTED FROM PREVIOUS SURGERY ROSEANNA WITH JOSHUA INTACT. [place]EN[place]OD CATHETER DRAINING CLEAR YELLOW URINE. CORPORATE BUYER CONTROL AND CALL LIGHT WITHIN REACH. BED LOCKED AND IN LOWEST POSITION. PROVIDED WET WASHCLOTH TO PLACE ON FOREHEAD. SPOUSE AT BEDSIDE.
[2018-07-18] MEDS: D5.45%NS/KCL 20MEQ 1,000 ML IV SCH ×2 (14:55→20:26)
[2018-07-18 15:13] VITALS: BP 132/77
[2018-07-18 15:21] VITALS: BP 132/77
[2018-07-18 16:12] VITALS: BP 118/65
[2018-07-18] MEDS: CEFAZOLIN SOD 1 GM/NS 50ML 50 ML IV SCH ×2 (16:22→23:38)
--- NOTE | 2018-07-18 16:49 | NUR ---
NOTIFIED DR. Deon KELLER PT IS DIAPHORETIC AND DROWSY SINCE ARRIVAL TO FLOOR. PER RECOVERY NURSE PT DIAPHORETIC SINCE HE WAS IN RECOVERY. PT HAS ONLY USED [address] ADMINISTRATOR SINCE ARRIVAL TO UNIT. PER DR. Deon KELLER HAVE ANESTHESIOLOGY SEE PT. ANESTHESIOLOGY DR. ANDREA CALLED AND ASSESSED PT. STATES PT APPEARS STABLE. DIAPHORETIC PROBABLY DUE TO PAIN. PT IS NOT TACHYCARDIC. STATES TO CONTINUE MONITORING PT.
[2018-07-18] MEDS: DOCUSATE SODIUM 100 MG CAP PO SCH (17:09)
--- NOTE | 2018-07-18 17:10 | NUR ---
PT IS MORE AWAKE AND ALERT NOW. SITTING UP IN BED EATING DINNER. NO COMPLAINTS AT THIS TIME.
[2018-07-18] MEDS ORDERED: ROCURONIUM BROMIDE 10 MG/ML 5ML VIAL ONE (17:15)
[2018-07-18] MEDS ORDERED: LIDOCAINE HCL 2% LOCAL INJ 5 ML SDV VIAL INJ ONE (17:15)
[2018-07-18] MEDS ORDERED: DEXAMETHASONE SOD PHOS INJ 4 MG/ML VIAL ONE (17:15)
[2018-07-18] MEDS ORDERED: ONDANSETRON HCL INJ 2MG/ML 2ML 2 MG/ML VIAL ONE (17:15)
[2018-07-18] MEDS ORDERED: SEVOFLURANE INHAL SOLN 250 ML PEN BTL ONE (17:15)
[2018-07-18] MEDS ORDERED: PROPOFOL IV EMULSION 10 MG/ML 20 ML VIAL ONE (17:15)
--- NOTE | 2018-07-18 19:15 | NUR ---
Rounding done & report received. Patient is resting in bed, respirations even & unlabored, no distress noted. Patient rates pain level 8/10, FIBERGLASS TUBE MOLDER button within reach. TOM drain in place draining dark serosanguineous fluid. Patient has dressing to left inguinal, C/D/I, & khurram intact to right inguinal. Healy in place, draining clear yellow urine. IV fluids running to right hand, no infiltration noted. Patient denies any issues or needs at this time. Call light within reach, side rails x2 raised & bed set to lowest position.
[2018-07-18 19:24] VITALS: BP 125/74
[2018-07-18 22:24] VITALS: BP 125/74
[2018-07-18 23:49] VITALS: BP 124/71
[2018-07-19] VITALS (7 sets, daily range): BP systolic 116–136; BP diastolic 62–74
[2018-07-19] MEDS: D5.45%NS/KCL 20MEQ 1,000 ML IV SCH ×3 (02:41→16:40)
[2018-07-19] MEDS: CEFAZOLIN SOD 1 GM/NS 50ML 50 ML IV SCH ×3 (05:54→22:03)
[2018-07-19 06:12] LABS: BASOPHILS % 0.4 % (0.0-1.0); EOSINOPHILS # (AUTO) 0.2 (0.0-0.4); EOSINOPHILS % 2.1 % (0.0-6.0); HEMOGLOBIN 13.9 g/dL (14.0-18.0); LYMPHOCYTES # (AUTO) 1.5 (1.0-3.2); MEAN CORPUSCULAR HEMOGLOBIN 30.1 pg (28-32); MEAN CORPUSCULAR HGB CONC 33.9 g/dL (31-35); MEAN CORPUSCULAR VOLUME 88.7 fL (81-99); MONOCYTES # (AUTO) 0.7 (0.2-0.8); MONOCYTES % 8.6 % (4.4-11.3); NEUTROPHILS # (AUTO) 5.3 (2.1-6.9); NEUTROPHILS % 68.4 % (38.7-80.0); PLATELET COUNT 318 x10e3/uL (140-360); RED BLOOD COUNT 4.62 x10e6/uL (4.3-5.7); RED CELL DISTRIBUTION WIDTH 12.4 % (11.7-14.4)
[2018-07-19 06:19] LABS: ANION GAP 11.4 mmol/L (8-16); BLOOD UREA NITROGEN 8 mg/dL (7-26); BUN/CREATININE RATIO 9 (6-25); CALCIUM 9.4 mg/dL (8.4-10.2); CARBON DIOXIDE 28 mmol/L (22-29); CHLORIDE 98 mmol/L (98-107); CREATININE, SERUM 0.86 mg/dL (0.72-1.25); EST GLOMERULAR FILTRATION RATE > 60 ML/MIN (60-); GLUCOSE 106 mg/dL (74-118); POTASSIUM 4.4 mmol/L (3.5-5.1); SODIUM 133 mmol/L (136-145)
--- NOTE | 2018-07-19 07:24 | NUR ---
PT COMPLAINS OF PARTIAL NUMBNESS TO LEFT FOOT. PT WITH GOOD RANGE OF MOTION, PRESENT STRONG PEDAL PULSE. DR. Deon KELLER MAKING ROUNDS AT THIS TIME NOTIFIED OF PT COMPLAINT AT BEDSIDE. PT WAS ASSESSED. RECEIVED ORDERS FOR THERAPY EVAL, D/C [facility] AND HOME HEALTH.
[2018-07-19] MEDS: DOCUSATE SODIUM 100 MG CAP PO SCH ×2 (09:19→16:40)
--- NOTE | 2018-07-19 09:19 | NUR ---
700 ML YELLOW URINE EMPTIED FROM [facility]EN[place]OD BAG. [facility] D/C AT THIS TIME. PT TOLERATED WELL. INSTRUCTED TO USE URINAL WITH FIRST VOID. PT VERBALIZED UNDERSTANDING.
--- NOTE | 2018-07-19 09:30 | NUR ---
ASSISTED PT TO SIT IN CHAIR AT THIS TIME. CALL LIGHT AND ORCHID HAND CONTROL WITHIN REACH. SPOUSE AT BEDSIDE.
--- NOTE | 2018-07-19 11:11 | NUR ---
CM SPOKE TO PATIENT AT BEDSIDE REGARDING DISCHARGE PLAN. PATIENT INFORMED THAT RESUMPTION OF HOME HEALTH HAS BEEN ORDERED. PATIENT VERBALLY AGREED TO RESUME HOME HEALTH SERVICES. PATIENT GIVEN CHOICES FOR HOME HEALTH PROVIDERS. PATIENT CHOSE STAY WITH [facility]. CHOICE LETTER SIGNED AND PLACED IN CHART. CLINICAL AND ORDER FAXED TO [facility]. [facility] (P) [phone] (F) [phone]
--- NOTE | 2018-07-19 11:56 | NUR ---
PROVIDED WALKER PER ORDER, GOT SIGNATURES AND FILED.
[2018-07-19] MEDS ORDERED: ONDANSETRON HCL 4 MG ORAL DISINTEGRATING TAB PO PRN (12:00)
--- NOTE | 2018-07-19 13:13 | NUR ---
PT VOIDED 500 ML CLEAR YELLOW URINE WITH NO DIFFICULTY.
[2018-07-19] MEDS ORDERED: ACETAMINOPHEN 325 MG TAB PO PRN (13:30)
--- NOTE | 2018-07-19 14:23 | NUR ---
PT TO NUC MED AT THIS TIME FOR GI BLEED SCAN VIA WHEEL CHAIR. Addendum: 07/19/18 at 1523 by Sirena Schroeder RN DISREGARD NOTE. ENTERED ON INCORRECT PT.
[2018-07-20 00:15] VITALS: BP 118/57
--- NOTE | 2018-07-20 00:20 | NUR ---
RECEIVED PATIENT IN REPORT FROM OUTGOING NURSE. PATIENT RESTING IN BED AT THIS TIME. BREATHING EVEN AND UNLABORED. CALL LIGHT IN REACH. WILL CONTINUE TO MONITOR.
[2018-07-20] MEDS: D5.45%NS/KCL 20MEQ 1,000 ML IV SCH ×2 (01:33→12:27)
[2018-07-20 04:31] VITALS: BP 109/63
[2018-07-20 05:50] LABS: BASOPHILS % 0.4 % (0.0-1.0); EOSINOPHILS # (AUTO) 0.3 (0.0-0.4); EOSINOPHILS % 4.2 % (0.0-6.0); HEMATOCRIT 41.1 % (38.2-49.6); HEMOGLOBIN 13.7 g/dL (14.0-18.0); LYMPHOCYTES # (AUTO) 1.7 (1.0-3.2); MEAN CORPUSCULAR HEMOGLOBIN 29.8 pg (28-32); MEAN CORPUSCULAR HGB CONC 33.3 g/dL (31-35); MEAN CORPUSCULAR VOLUME 89.3 fL (81-99); MONOCYTES # (AUTO) 0.7 (0.2-0.8); MONOCYTES % 9.6 % (4.4-11.3); NEUTROPHILS # (AUTO) 4.2 (2.1-6.9); NEUTROPHILS % 59.8 % (38.7-80.0); PLATELET COUNT 301 x10e3/uL (140-360); RED CELL DISTRIBUTION WIDTH 12.5 % (11.7-14.4)
[2018-07-20 06:20] LABS: ANION GAP 10.5 mmol/L (8-16); BLOOD UREA NITROGEN 9 mg/dL (7-26); BUN/CREATININE RATIO 10 (6-25); CARBON DIOXIDE 26 mmol/L (22-29); CHLORIDE 103 mmol/L (98-107); CREATININE, SERUM 0.91 mg/dL (0.72-1.25); EST GLOMERULAR FILTRATION RATE > 60 ML/MIN (60-); GLUCOSE 116 mg/dL (74-118); POTASSIUM 4.5 mmol/L (3.5-5.1); SODIUM 135 mmol/L (136-145)
[2018-07-20] MEDS: CEFAZOLIN SOD 1 GM/NS 50ML 50 ML IV SCH ×2 (06:20→14:04)
--- NOTE | 2018-07-20 07:52 | NUR ---
RECEIVED PATIENT RESTING IN BED NO SIGNS OF DISTRESS AT THIS TIME. BED LOW, WHEELS LOCKED, SIDE RAILS X2. CALL LIGHT IN REACH. WILL CONTINUE TO MONITOR PATIENT.
[2018-07-20 08:41] VITALS: BP 126/82
[2018-07-20] MEDS: DOCUSATE SODIUM 100 MG CAP PO SCH (09:53)
[2018-07-20 11:19] VITALS: BP 126/82
[2018-07-20 12:11] VITALS: BP 132/72
[2018-07-20] MEDS ORDERED: TYLENOL WITH C1 EACH PO (14:06)
[2018-07-20] MEDS ORDERED: DOXYCYCLINE HY100 MG PO (14:07)
--- NOTE | 2018-07-20 14:30 | NUR ---
REMOVED JOSHUA FROM LEFT GROIN INCISION. 17 JOSHUA REMOVED.
--- NOTE | 2018-07-20 15:20 | NUR ---
REMOVED PATIENTS IV. CATHETER TIP INTACT AND PRESSURE DRESSING APPLIED.
--- NOTE | 2018-07-20 15:31 | NUR ---
PATIENT DISCHARGED FROM FACILITY. PATIENT GATHERED ALL PERSONAL BELONGINGS, DISCHARGE INSTRUCTIONS, AND FOLLOW UP INFORMATION. LEFT UNIT IN WHEELCHAIR AND WENT HOME VIA PRIVATE AUTO. NO SIGNS OF DISTRESS WHEN LEAVING FACILITY.
--- NOTE | 2018-07-21 03:07 | Discharge Summary ---
INSURANCE PRODUCER: Dr. Jeff Hutton. PRIMARY CARE PHYSICIAN: Dr. Ronal Crespo. FINAL DIAGNOSES: 1. squamous carcinoma. 2. Status post left inguinal lymphadenectomy. 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 The patient is status post left inguinal lymphadenectomy. The patient is stable. Postoperative pain was on BUSINESS PROJECT ANALYST pump. Repeated lab work was stable. The patient is comfortable, stable to go home today. Lab was otherwise unremarkable. The patient will go home with Tylenol No.3 and doxycycline 1 mg twice a day 14 days. The patient will follow up with Dr. Jeff Hutton. He will be discharged to home with a left TOM drain. All instructions given to the patient. The patient will be discharged home today. MD SHANA Gandara/MODL /[id number]
== END 2018-07-20 15:32 | disposition home or self-care (01) | DRG 707 ==
LOC: OR 08:19 → PACU V 12:28 → MED/SURG 14:27
PROVIDERS: ADMIT Internal Medicine; ATTEND Internal Medicine
PROC: 07TJ0ZZ Resection of Left Inguinal Lymphatic, Open Approach (ICD-10-PCS; principal; 2018-07-18 10:30)
DX: C60.9 Malignant neoplasm of penis, unspecified (principal); C77.4 Secondary and unspecified malignant neoplasm of inguinal and lower limb lymph nodes; E87.1 Hypo-osmolality and hyponatremia; R20.0 Anesthesia of skin
CPT/HCPCS: 36415; 80048; 82948; 85025; 88307; 97139; J0690; J1100; J2001; J2250; J2270; J2405